=== PATIENT | male | born 1995 | race American Indian/Alaskan Native ===

== ENCOUNTER 2021-10-15 01:39 | Emergency (ER) | payer SELFPAY ==
[2021-10-15] MEDS ORDERED: ONDANSETRON 4 MG/2 ML INJ IV ONE (02:21)
[2021-10-15] MEDS ORDERED: SODIUM CHLORIDE 0.9% 1000 ML 1,000 ML IV ONE ×2 (02:21→03:50)
[2021-10-15] MEDS ORDERED: HYDROmorphone 1 MG/1 ML INJ IV ONE (02:21)
--- NOTE | 2021-10-15 02:24 | Emergency Department Report ---
<MATTEO POWERS - Last Filed: 10/15/21 04:26> ED General Adult HPI - General Chief complaint: Hyperglycemia Stated complaint: Left-sided abdominal pain Time Seen by Provider: 10/15/21 02:05 Source: patient, EMS (Verbal report received from emergency medical services), RN notes reviewed Mode of arrival: Stretcher Limitations: No Limitations - History of Present Illness Initial comments: The patient was evaluated in the emergency department for symptoms described in the history of present illness. He/she was evaluated in the context of the global COVID-19 pandemic, which necessitated consideration that the patient might be at risk for infection with the virus that causes COVID-19. Institutional protocols and algorithms that pertain to the evaluation of patients at risk for COVID-19 are in a state of rapid change based on information released by regulatory bodies including the CDC and federal and state organizations. These policies and algorithms were followed during the patient's care in the emergency department. Please note that these policies, procedures and recommendations changed on a rapid basis. The patient is a 26-year-old gentleman with a history of Asperger's syndrome, body mass index of 40.7, who does not have a known or established past medical history of hyperglycemia, diabetes, or hypertension. Patient presents to the ER today with a complaint of nontraumatic left-sided flank pain. This has been going on for the past few hours. Patient denies additional injuries and complaints as terms of pain. He denies testicular pain, dysuria, headache, neck pain, chest pain, vomiting, and focal extremity weakness and numbness. The patient denies travel, surgery, immobilization, DVT/PE risk factors. -: Gradual Location: abdomen Radiation: abdomen Quality: aching Consistency: constant Improves with: rest Worsens with: movement - Related Data Previous Rx's Medication Instructions Recorded Last Taken Type metFORMIN [Glucophage] 500 mg PO BID 30 Days #60 tab NS 10/15/21 Unknown Rx Allergies Allergy/AdvReac Type Severity Reaction Status Date / Time No Known Allergies Allergy Unverified 04/10/18 08:00 ED Review of Systems Constitutional: malaise. denies: fever Eyes: denies: eye discharge ENT: denies: epistaxis Respiratory: denies: cough Cardiovascular: denies: chest pain Gastrointestinal: abdominal pain Genitourinary: denies: dysuria Musculoskeletal: back pain Neurological: weakness Psychiatric: anxiety ED Past Medical Hx - Medications Home Medications: Home Medications Medication Instructions Recorded Confirmed Last Taken Type metFORMIN [Glucophage] 500 mg PO BID 30 Days #60 tab NS 10/15/21 Unknown Rx ED Physical Exam - General Limitations: No Limitations General appearance: alert, anxious, in distress, obese - Head Head exam: Present: atraumatic, normocephalic - Eye Eye exam: Present: normal appearance, EOMI. Absent: nystagmus - ENT ENT exam: Present: normal exam, normal orophraynx, mucous membranes moist, normal external ear exam - Neck Neck exam: Present: normal inspection, full ROM. Absent: tenderness, meningismus - Respiratory Respiratory exam: Present: normal lung sounds bilaterally. Absent: respiratory distress, wheezes, rales, rhonchi, stridor, decreased breath sounds - Cardiovascular Cardiovascular Exam: Present: normal rhythm, tachycardia, normal heart sounds. Absent: bradycardia, irregular rhythm, systolic murmur, diastolic murmur, rubs, gallop - GI/Abdominal GI/Abdominal exam: Present: soft. Absent: distended, tenderness, guarding, rebound, rigid, pulsatile mass - Rectal Rectal exam: Present: deferred - Extremities Exam Extremities exam: Present: normal inspection, full ROM, other (2+ pulses noted in the bilateral upper and lower extremities. There is no palpable cord. negative Homans sign. Muscular compartments are soft. The pelvis is stable.). Absent: pedal edema, calf tenderness - Back Exam Back exam: Present: normal inspection, CVA tenderness (L), paraspinal tenderness. Absent: tenderness - Neurological Exam Neurological exam: Present: alert, oriented X3, normal gait, other (No facial dr oop. Tongue midline. Extraocular movements intact bilaterally. Facial sensation intact to light touch in V1, V2, V3 distribution bilaterally. 5 and a 5 strength in 4 extremities. Sensation intact to light touch in 4 extremities.). Absent: motor sensory deficit - Psychiatric Psychiatric exam: Present: anxious - Skin Skin exam: Present: warm, dry, intact, normal color. Absent: rash ED Course - Reevaluation(s) Reevaluation #1: 10/15/21 03:10 Differential diagnosis, including but not limited to: Renal colic, constipation, obstruction, AAA, morbid obesity, hyperglycemia, diabetes, hypertension, elevated blood pressure, DKA, hyper osmolar state Assessment and plan: 26-year-old gentleman with a primary complaint of left- sided flank pain. He is incidentally tachycardic and hypertensive, likely secondary to pain. He is clinically sober with a GCS of 15. We will treat the patient's pain aggressively. We will obtain appropriate laboratory studies. We will obtain CT scan of the abdomen pelvis, and reassess. I discussed this plan of care with the patient. He is agreeable to the plan of care. 10/15/21 03:22 Patient sleeping comfortably in stretcher. Heart rate 96 bpm. Blood pressure 130/90. Awaiting laboratory studies and CT scan abdomen pelvis. Appears much improved. No acute distress Reevaluation #2: 10/15/21 03:51 Venous pH within normal limits. Urinalysis demonstrates glucosuria. Glucose 6 17, with pseudohyponatremia. CO2 17, anion gap 27. IV fluids ordered, insulin ordered. CT scan abdomen pelvis pending at this time. 10/15/21 04:26 CT scan abdomen pelvis negative for acute findings. Transaminitis likely secondary to fatty liver disease. We will give IV fluids, and insulin. We will repeat basic metabolic panel. We will reassess. Chemistry repeated at 5:30 AM. Care will likely have to be transferred to the oncoming ER physician to follow-up on repeat basic metabolic panel. Should patient have improvement in hyperglycemia and anion gap, we would consider it reasonable to discharge with outpatient follow-up. However, should he still have persistent hyperglycemia, and metabolic acidosis, we would recommend admission to the medical service for metabolic correction. [facility], Dr. Lo to follow up on repeat [facility] [place] Medical Decision Making - Lab Data Result diagrams: 10/15/21 02:37 10/15/21 02:37 Lab Results 10/15/21 10/15/21 Range/Units 02:37 02:37 [place] % (Auto) 8.7 H (0.0-7.3) % Eos % (Auto) 1.1 (0.0-4.3) % [place] # (Auto) 0.7 (0.0-0.8) K/mm3 Eos # (Auto) 0.1 (0.0-0.4) K/mm3 Baso # (Auto) 0.1 (0.0-0.1) K/mm3 Seg Neutrophils % 56.6 (40.0-70.0) % Seg Neutrophils # 4.4 (1.8-7.7) K/mm3 VBG pH 7.381 (7.320-7.420) Vital Signs 10/15/21 10/15/21 01:42 02:57 Temperature 98.3 F Pulse Rate 100 H Respiratory 20 17 Rate Blood Pressure 210/100 [Right] O2 Sat by Pulse 98 Oximetry Lab Results 10/15/21 10/15/21 10/15/21 Range/Units 02:37 02:37 02:37 WBC 7.7 (4.5-11.0) K/mm3 RBC 5.37 H (3.65-5.03) M/mm3 Hgb 14.7 (11.8-15.2) gm/dl Hct 40.5 (35.5-45.6) % MCV 76 L (84-94) fl MCH 28 (28-32) pg MCHC 36 H (32-34) % RDW 15.9 H (13.2-15.2) % Plt Count 264 (140-440) K/mm3 Lymph % (Auto) 32.5 (13.4-35.0) % [place] % (Auto) 8.7 H (0.0-7.3) % Eos % (Auto) 1.1 (0.0-4.3) % Baso % (Auto) 1.1 (0.0-1.8) % Lymph # (Auto) 2.5 (1.2-5.4) K/mm3 [place] # (Auto) 0.7 (0.0-0.8) K/mm3 Eos # (Auto) 0.1 (0.0-0.4) K/mm3 Baso # (Auto) 0.1 (0.0-0.1) K/mm3 Seg Neutrophils % 56.6 (40.0-70.0) % Seg Neutrophils # 4.4 (1.8-7.7) K/mm3 VBG pH 7.381 (7.320-7.420) Sodium 127 L (137-145) mmol/L Potassium 4.8 (3.6-5.0) mmol/L Chloride 87.6 L (98-107) mmol/L Carbon Dioxide 17 L (22-30) mmol/L Anion Gap 27 mmol/L BUN 14 (9-20) mg/dL Creatinine 0.9 (0.8-1.3) mg/dL Estimated GFR > 60 ml/min BUN/Creatinine Ratio 16 % Glucose 617 H* (75-100) mg/dL Calcium 9.8 (8.4-10.2) mg/dL Magnesium (1.7-2.3) mg/dL Total Bilirubin < 0.20 (0.1-1.2) mg/dL Direct Bilirubin 0.3 H (0-0.2) mg/dL Indirect Bilirubin -0.1 mg/dL AST 52 H (5-40) units/L ALT 81 H (7-56) units/L Alkaline Phosphatase 179 H (35-129) units/L Total Creatine Kinase (55-170) units/L Total Protein 8.5 H (6.3-8.2) g/dL Albumin 4.2 (3.9-5) g/dL Albumin/Globulin Ratio 1.0 % Urine Color (Yellow) Urine Turbidity (Clear) Urine pH (5.0-7.0) Ur Specific [place] (1.003-1.030) Urine Protein (Negative) mg/dL Urine Glucose (UA) (Negative) mg/dL Urine Ketones (Negative) mg/dL Urine Blood (Negative) Urine Nitrite (Negative) Urine Bilirubin (Negative) Urine Urobilinogen (<2.0) mg/dL Ur Leukocyte Esterase (Negative) Urine WBC (Auto) (0.0-6.0) /HPF Urine RBC (Auto) (0.0-6.0) /HPF U Epithel Cells (Auto) (0-13.0) /HPF Urine Mucus /HPF Plasma/Serum Alcohol (0-0.07) % 10/15/21 10/15/21 10/15/21 Range/Units 02:37 02:37 03:12 WBC (4.5-11.0) K/mm3 RBC (3.65-5.03) M/mm3 Hgb (11.8-15.2) gm/dl Hct (35.5-45.6) % MCV (84-94) fl MCH (28-32) pg MCHC (32-34) % RDW (13.2-15.2) % Plt Count (140-440) K/mm3 Lymph % (Auto) (13.4-35.0) % [place] % (Auto) (0.0-7.3) % Eos % (Auto) (0.0-4.3) % Baso % (Auto) (0.0-1.8) % Lymph # (Auto) (1.2-5.4) K/mm3 [place] # (Auto) (0.0-0.8) K/mm3 Eos # (Auto) (0.0-0.4) K/mm3 Baso # (Auto) (0.0-0.1) K/mm3 Seg Neutrophils % (40.0-70.0) % Seg Neutrophils # (1.8-7.7) K/mm3 VBG pH (7.320-7.420) Sodium (137-145) mmol/L Potassium (3.6-5.0) mmol/L Chloride (98-107) mmol/L Carbon Dioxide (22-30) mmol/L Anion Gap mmol/L BUN (9-20) mg/dL Creatinine (0.8-1.3) mg/dL Estimated GFR ml/min BUN/Creatinine Ratio % Glucose (75-100) mg/dL Calcium (8.4-10.2) mg/dL Magnesium 2.20 (1.7-2.3) mg/dL Total Bilirubin (0.1-1.2) mg/dL Direct Bilirubin (0-0.2) mg/dL Indirect Bilirubin mg/dL AST (5-40) units/L ALT (7-56) units/L Alkaline Phosphatase (35-129) units/L Total Creatine Kinase 164 (55-170) units/L Total Protein (6.3-8.2) g/dL Albumin (3.9-5) g/dL Albumin/Globulin Ratio % Urine Color Colorless (Yellow) Urine Turbidity Clear (Clear) Urine pH 6.0 (5.0-7.0) Ur Specific [place] 1.025 (1.003-1.030) Urine Protein <15 mg/dl (Negative) mg/dL Urine Glucose (UA) >=500 (Negative) mg/dL Urine Ketones 20 (Negative) mg/dL Urine Blood Sm (Negative) Urine Nitrite Neg (Negative) Urine Bilirubin Neg (Negative) Urine Urobilinogen < 2.0 (<2.0) mg/dL Ur Leukocyte Esterase Neg (Negative) Urine WBC (Auto) < 1.0 (0.0-6.0) /HPF Urine RBC (Auto) 1.0 (0.0-6.0) /HPF U Epithel Cells (Auto) < 1.0 (0-13.0) /HPF Urine Mucus Few /HPF Plasma/Serum Alcohol < 0.01 (0-0.07) % Vital Signs 10/15/21 10/15/21 10/15/21 01:42 02:18 02:31 Temperature 98.3 F Pulse Rate 100 H Respiratory 20 Rate Blood Pressure Blood Pressure 210/100 [Right] O2 Sat by Pulse 98 97 96 Oximetry 10/15/21 10/15/21 10/15/21 02:45 02:57 03:00 Temperature Pulse Rate Respiratory 17 Rate Blood Pressure 144/74 Blood Pressure [Right] O2 Sat by Pulse 96 93 Oximetry 10/15/21 10/15/21 10/15/21 03:12 03:15 03:16 Temperature 97.9 F 98.0 F Pulse Rate 96 H 96 H Respiratory 17 17 17 Rate Blood Pressure 130/76 Blood Pressure 130/76 [Right] O2 Sat by Pulse 97 97 97 Oximetry - EKG Data -: EKG Interpreted by Nm EKG shows normal: sinus rhythm Rate: tachycardia - EKG Data 10/15/21 03:09 The EKG is interpreted at 02: 32 Sinus tachycardia, 110 bpm. Borderline rightward axis deviation. Normal P wave axis. QTC 440 milliseconds. Q waves noted in the inferior leads. This is an abnormal EKG. This is not a STEMI - Radiology Data Radiology results: pending, report reviewed, image reviewed [facility] [address] [place] [address] Cat Scan Report Signed Patient: ODIN SHARMA MR#: [id number] : 1995 Acct:[id number] Age/Sex: 26 / M ADM Date: 10/15/21 Loc: ED Att ending Dr: Ordering Physician: MATTEO POWERS MD Date of Service: 10/15/21 Procedure(s): CT abdomen pelvis w con Accession Number(s): [id number] cc: MATTEO POWERS MD CT ABDOMEN AND PELVIS WITH CONTRAST INDICATION: Left-sided flank pain, hypertension and hyperglycemia CONTRAST: 100 cc Omnipaque 300 IV COMPARISON: None available. All CT scans at this location are performed using CT dose reduction for ALARA by means of automated exposure control. FINDINGS: Lung bases clear. No pneumoperitoneum. Gallbladder contracted without obvious abnormality. No biliary dilatation. Prominent fatty infiltration of the liver without obvious focal lesion. Liver is enlarged and has a length of 20.7 cm. Spleen without enlargement. No abdominal masses. No lymphadenopathy. No free fluid. No bowel obstruction. Appendix normal. No inflammatory changes. Urinary bladder mildly distended but no focal abnormality. Prostate is seminal vesicles normal. No pelvic mass. IMPRESSION: No acute abnormalities are seen Signer Name: Bill Murphy MD Signed: 10/15/2021 4:15 AM Workstation Name: [id number] Transcribed By: GJ Dictated By: Bill Murphy MD Electronically Authenticated By: Bill Murphy MD Signed Date/Time: 10/15/21414 DD/ 0 Critical Care Time: Yes Critical care time in (mins) excluding proc time.: 35 ED Disposition Clinical Impression: Hyperglycemia, Left flank pain, Body mass index exceeds 40, Fatty liver Diabetes mellitus Qualifiers: Diabetes mellitus type: type 2 Diabetes mellitus lobsterman insulin use: unspecified lobsterman insulin use status Diabetes mellitus complication status: with other specified complication Qualified Code(s): E11.69 - Type 2 diabetes mellitus with other specified complication Disposition: 01 HOME / SELF CARE / HOMELESS Is pt being admited?: Yes Does the pt Need Aspirin: No Condition: Good Instructions: Diabetes Mellitus Type 2 in Adults (ED), Type 2 Diabetes Mellitus, Diagnosis, Adult, Tips for Eating Away From Home If You Have Diabetes, Complementary and Alternative Medical Therapies for Diabetes, Diabetes Mellitus and Sick Day Management, Type 2 Diabetes Mellitus, Diagnosis, Adult, [id number], Blood Glucose Monitoring, Adult, Insulin Resistance Additional Instructions: Follow the above printed instruction regarding diabetes to help your symptoms Increase your daily fluid to help your hydration It is very important that you call and follow-up with your primary doctor in the next 3 to 5 days for progress Please do not hesitate to call or return to emergency room if your symptoms worsen Prescriptions: metFORMIN [Glucophage] 500 mg PO BID 30 Days #60 tab NS <ARIANNE LO - Last Filed: 10/15/21 12:20> ED Review of Systems ROS: Stated complaint: Left-sided abdominal pain Other details as noted in HPI ED Course Vital Signs 10/15/21 10/15/21 10/15/21 01:42 02:18 02:31 Temperature 98.3 F Pulse Rate 100 H Respiratory 20 Rate Blood Pressure Blood Pressure 210/100 [Right] O2 Sat by Pulse 98 97 96 Oximetry 10/15/21 10/15/21 10/15/21 02:45 02:57 03:00 Temperature Pulse Rate Respiratory 17 Rate Blood Pressure 144/74 Blood Pressure [Right] O2 Sat by Pulse 96 93 Oximetry 10/15/21 10/15/21 10/15/21 03:12 03:15 03:16 Temperature 97.9 F 98.0 F Pulse Rate 96 H 96 H Respiratory 17 17 17 Rate Blood Pressure 130/76 Blood Pressure 130/76 [Right] O2 Sat by Pulse 97 97 97 Oximetry - Reevaluation(s) Reevaluation #3: 10/15/21 08:29 Pt signed out to me at shift change 06:00 AM while waiting for his response to his initial hyperglycemia treatment with insulin and ivf ns 1L bolus x 1-- the second ivf ns has not been given. Pt noted with improvement in anion gap from 27 down to 20, blood sugar down from 617 2 386 mg/dL and also sodium up from 127 to 131 mg/dL. Will complete this patient 2nd liter of ivf ns and discharge home to start Metformin 500mg PO BID with warning/ diabetic education and close follow up with his doctor in the next 1-2 weeks for progress. Reevaluation #4: 10/15/21 12:17 Patient reevaluated and reports feeling much better after the second liter of IV fluids and stable enough to be discharged home with close follow-up to her primary doctor.-I will go ahead and discharge this patient home on metformin 500 mg twice daily for 30 days supply to give him room to follow-up with his primary doctor. We will also give diabetes instructions and warning to prevent exacerbation. ED Medical Decision Making - Lab Data Result diagrams: 10/15/21 02:37 10/15/21 06:38 Critical care attestation.: If time is entered above; I have spent that time in minutes in the direct care of this critically ill patient, excluding procedure time. ED Disposition Is pt being admited?: No Does the pt Need Aspirin: No Time of Disposition: 12:20
[2021-10-15 03:05] LABS: Basophils # (Auto) 0.1 K/mm3 (0.0-0.1); Basophils % (Auto) 1.1 % (0.0-1.8); Eosinophils # (Auto) 0.1 K/mm3 (0.0-0.4); Eosinophils % (Auto) 1.1 % (0.0-4.3); Lymphocytes # (Auto) 2.5 K/mm3 (1.2-5.4); Lymphocytes % (Auto) 32.5 % (13.4-35.0); Mean Corpuscular HGB Conc 36 % (32-34); Mean Corpuscular Volume 76 fl (84-94); Monocytes # (Auto) 0.7 K/mm3 (0.0-0.8); Monocytes % (Auto) 8.7 % (0.0-7.3); Platelet Count 264 K/mm3 (140-440); Red Blood Count 5.37 M/mm3 (3.65-5.03); Red Cell Distribution Width 15.9 % (13.2-15.2)
[2021-10-15 03:21] LABS: Hematocrit 40.5 % (35.5-45.6); Hemoglobin 14.7 gm/dl (11.8-15.2)
[2021-10-15 03:21] LABS: Bilirubin,Urine NEG (Negative); Blood,Urine SM (Negative); Color,Urine Colorless (Yellow); Mucus,Urine FEW /HPF; Protein,Urine <15 mg/dL mg/dL (Negative); Urobilinogen,Urine < 2.0 mg/dL (<2.0); WBC,Urine < 1.0 /HPF (0.0-6.0)
[2021-10-15 03:30] LABS: Albumin 4.2 g/dL (3.9-5); BUN/Creatinine Ratio 16; Bilirubin,Direct 0.3 mg/dL (0-0.2); Blood Urea Nitrogen 14 mg/dL (9-20); Calcium 9.8 mg/dL (8.4-10.2); Hemolysis Index 188
[2021-10-15 03:45] LABS: Alanine Aminotransferase 81 units/L (7-56)
[2021-10-15] MEDS ORDERED: INSULIN REGULAR, HUMAN 100 UNITS/1 ML IV ONE ×2 (03:50→04:57)
[2021-10-15 04:12] LABS: INR 0.85 (0.87-1.13)
--- NOTE | 2021-10-15 04:20 | Cat Scan Report ---
CT ABDOMEN AND PELVIS WITH CONTRAST INDICATION: Left-sided flank pain, hypertension and hyperglycemia CONTRAST: 100 cc Omnipaque 300 IV COMPARISON: None available. All CT scans at this location are performed using CT dose reduction for ALARA by means of automated e xposure control. FINDINGS: Lung bases clear. No pneumoperitoneum. Gallbladder contracted without obvious abnormality. No biliary dilatation. Prominent fatty infiltration of the liver without obvious focal lesion. Liver is enlarged and has a length of 20.7 cm. Spleen without enlargement. No abdominal masses. No lymphade nopathy. No free fluid. No bowel obstruction. Appendix normal. No inflammatory changes. Urinary bladd er mildly distended but no focal abnormality. Prostate is seminal vesicles normal. No pelvic mass. IMPRESSION: No acute abnormalities are seen Signer Name: Bill Murphy MD Signed: 10/15/2021 4:15 AM Workstation Name: [id number]
[2021-10-15] MEDS ORDERED: KETOROLAC 30 MG/1 ML INJ IV ONE (04:24)
[2021-10-15] MEDS ORDERED: ACETAMINOPHEN 500 MG TAB PO ONE (04:24)
[2021-10-15] MEDS ORDERED: METOCLOPRAMIDE 10 MG/2 ML INJ IV ONE (04:24)
[2021-10-15 07:15] LABS: Blood Urea Nitrogen 13 mg/dL (9-20); Calcium 9.3 mg/dL (8.4-10.2); Hemolysis Index 94
[2021-10-15 07:16] LABS: BUN/Creatinine Ratio 22
[2021-10-15 13:09] VITALS: BP 148/45
== END 2021-10-15 13:08 | disposition home or self-care (01) ==
LOC: ED 01:39
DX: E11.65 Type 2 diabetes mellitus with hyperglycemia (principal); R10.9 Unspecified abdominal pain; Z68.41 Body mass index [BMI] 40.0-44.9, adult; K76.0 Fatty (change of) liver, not elsewhere classified
CPT/HCPCS: 36415; 74177; 80048; 80076; 81001; 82550; 82805; 83735; 85025; 85610; 93005; 96361; 96374; 96375; 99284; J1170; J1885; J2405; J2765; J7030; Q9967; 80320; G0480; J1815